=== PATIENT | female | born 1935 | race African-American/Black ===

== ENCOUNTER 2016-03-18 11:47 | Emergency (ER) | payer MEDICARE ==
[2016-03-18 12:11] VITALS: TEMP 98.3; BMI 24.2
[2016-03-18] MEDS ORDERED: DIAZEPAM 2 MG TAB PO ONE (12:55)
--- NOTE | 2016-03-18 12:56 | EDPRACDOC ---
- General Information Chief Complaint: Neck Pain Stated Complaint: LT SIDED NECK PAIN NO INJURY Time Seen by Provider: 03/18/16 12:45 Information Source: Patient Mode Of Arrival: Car Home Medications: Home Medications Aspirin (Enteric Coated) [Ecotrin] 81 mg PO DAILY 03/18/16 Cyclobenzaprine HCl [Flexeril] 10 mg PO Q8H #10 tab 03/18/16 Hydrocodone Bit/Acetaminophen [[place] 5-325 Tablet] 1 tab PO Q8H PRN 03/18/16 Losartan/Hydrochlorothiazide [Losartan-Hctz 100-12.5 mg Tab] 1 tab PO DAILY Omeprazole 20 mg PO DAILY 03/18/16 Simvastatin [Zocor] 20 mg PO QHS 03/18/16 Allergies/Adverse Reactions: Allergies Allergy/AdvReac Type Severity Reaction Status Date / Time No Known Allergies Allergy Verified 03/18/16 12:11 - History of Present Illness Onset: yesterday HPI: Patient reports left lateral neck pain that started yesterday, states it was hurting some while she was doing house work and then when she was going to bed she had increased pain and woke this AM with pain on ROM and palpation. No CP, SOB, no radiation of pain, no numbness/tingling, denies headache/vision change. No ear pain, sore throat. Pain worse with turning her head to the left. Pain Severity: Moderate Associated signs and symptoms: Reports: None ED Past Medical History - History Reviewed Yes Nurses notes reviewed and agree except as marked - Patient Medical History Cardiac History: Reports: Hypertension, Heart Attack (2008), Hypercholesterolemia Psychological History: Denies: Depression - Social Medical History Smoking Status: Never smoker ETOH: None Substance Abuse: None Lives In: Home EDM Review of Systems - Review of Systems ROS Negative Except as Marked: Yes All systems reviewed and were negative except as marked Constitutional: No Symptoms Reported Eyes: No Symptoms Reported Ears: No Symptoms Reported Throat: No Symptoms Reported Nose: No Symptoms Reported Mouth: No Symptoms Reported Respiratory: No Symptoms Reported Cardiovascular: No Symptoms Reported Neurological: No Symptoms Reported Musculoskeletal: Neck Integumentary: No Symptoms Reported - Physical Exam Constitutional: Alert (Awake), No apparent distress Oriented to: Time, Person, Place Last recorded Vital Signs: Last Vital Signs Temp 98.3 F 03/18/16 12:07 Pulse 91 03/18/16 12:07 Resp 16 03/18/16 12:07 BP 147/74 03/18/16 12:07 Pulse Ox 97 03/18/16 12:07 Oxygen Pulse Oxygen Saturation 97 O2 Device Oxygen Flow Rate Fraction of Inspired Oxygen ( FIO2) - HEENT Head: Normal ( normocephalic) Eye Exam: Normal (PERRL, EOMI, Sclera white) Oropharynx: Normal (Pharynx:Moist without exudate,Gums-no swelling) Tympanic Membrane: Normal ENT EAC: Normal TMJ: Normal Nose: No Symptoms Reported (septum midline) Neck: Limited ROM, Paraspinal Tenderness, Tender. negative: Bony Tenderness, Crepitus, Meningeal Signs - Respiratory/Cardiovascular Respiratory: Normal - CTA (BBS clear to auscultation without adventitious sounds ) Cardiovascular: Normal (RRR without murmur, gallop or rub) - GI Auscultation: Normal (NABS) Tenderness: Non tender - Musculoskeletal Back: Normal (Non-Tender) Extremities: Normal (Normal tone, Pulses 2+ No cyanosis or edema, FROM) - Integumentary Skin: Normal, Warm, Dry Lymphatics: Normal (no adenopathy) - Neurologic Memory Impaired: Normal Motor Function: Normal (Normal tone, Pulses 2+ No cyanosis or edema, FROM) Cranial Nerve: Normal (CN II-X11 intact sensation, strength 5/5) Mood Description: Normal - Re-evaluation Re-evaluation 1 Re-evaluation Time: 14:[address] Sorto as well. Patient stable for d/c. Return if worse/ different. Patient has some improvement after muscle relaxer. Decision Time to Discharge: 14:18 - Departure Disposition: Home Condition: Stable Final Diagnosis: Cervical muscle strain Qualifiers: Encounter type: initial encounter Qualified Code(s): S16.1XXA - Strain of muscle, fascia and tendon at neck level, initial encounter Instructions: Cervical Strain (ED), Spasmodic Torticollis (ED), Neck Exercises (GEN) Education/Counseling Given To: Patient Education/Counseling Given Regarding: Diagnosis, Treatment, Prognosis, Follow Up Referrals: None,No Provider [Primary Care Provider] - 1-2 days Prescriptions: Cyclobenzaprine HCl [Flexeril] 10 mg PO Q8H #10 tab Additional Instructions: Call your PCP tomorrow for an appt. Return to ED if symptoms worsen/change or concerns arise as discussed. Use warm compresses to your neck 3-4x daily for 15- 20min each time. Do not take your pain medication with your muscle relaxer given today - space them out by atleast 45min.
--- NOTE | 2016-03-18 13:53 | DIRPT ---
CLINICAL DATA: Cervicalgia. EXAM: CERVICAL SPINE - COMPLETE 4+ VIEW COMPARISON: None. FINDINGS: Frontal, lateral, open-mouth odontoid, and bilateral oblique views were obtained. The patient has had anterior fusion from C3-C6. The screw and plate fixation device appears intact. 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 There is no fracture. There is 3 mm of anterolisthesis of C7 on T1, likely due to underlying spondylosis. No other spondylolisthesis. Prevertebral soft tissues and predental space regions are normal. There is moderately severe disc space narrowing at C6-7 and C7-T1. There is mild disc space narrowing at C2-3. There is exit foraminal narrowing due to facet hypertrophy at C3-4, C4-5, C5-6, and C6-7 bilaterally. There are foci of carotid artery calcification bilaterally. IMPRESSION: Postoperative change. Multilevel arthropathy. Mild spondylolisthesis at C7-T1, likely due to underlying spondylosis. No fracture. Foci of carotid artery calcification noted bilaterally. Electronically Signed By: Vidal Sanchez III, M.D. On: 03/18/2016 13:51
[2016-03-18 14:28] VITALS: BP 117/59; PULSE 84
== END 2016-03-18 14:26 | disposition home or self-care (01) ==
LOC: ED 11:47
DX: S16.1XXA Strain of muscle, fascia and tendon at neck level, initial encounter (principal); X58.XXXA Exposure to other specified factors, initial encounter; Y93.9 Activity, unspecified
CPT/HCPCS: 72050; 99283; A9270; J3490